=== PATIENT | female | born 1960 | race Caucasian/White ===

== ENCOUNTER → 2017-03-15 | Outpatient (CLI) | payer OTHER ==
--- NOTE | 2017-03-15 07:58 | DIAGNOSTIC IMAGING REPORT ---
SOFT TISS HEAD/NECK-THYROID CLINICAL HISTORY: 56 years-old Female presenting with MULTIPLE THYROID NODULE, DYSPHAGIA. TECHNIQUE: Real-time grayscale and color and spectral Doppler ultrasound imaging of the thyroid and base of the neck was performed. COMPARISON: None. FINDINGS: Right lobe: Normal echogenicity and echotexture. The right lobe of the thyroid measures 5.6 x 2.3 x 2.2 cm. Multiple cystic and spongiform nodules, one with a hyperechogenic focus with ringdown artifact consistent with colloid. Additionally, a fairly well-defined 1.4 x 1.2 x 1.4 cm isoechoic to hyperechoic nodule in the interpolar region noted. (Low suspicion pattern) Left lobe: Normal echogenicity and echotexture. The left lobe of the thyroid measures 5.4 x 2.1 x 1.8 cm. Multiple nodules listed below: 1) lower pole heterogeneously isoechoic nodule measuring 1.3 x 1.2 x 1.8 cm. This nodule is somewhat poorly defined but wider than tall. (Low suspicion pattern) 2) lower pole to mid pole heterogeneously hypoechoic nodule measuring 1.0 x 1.0 x 1.5 cm. This nodule is well-defined and wider than tall. (Intermediate suspicion pattern) 3) Upper pole hypoechoic nodule measuring 1.3 x 1.2 x 1.9 cm. This nodule is well-defined and wider than tall. (Intermediate suspicion pattern) Isthmus: The isthmus measures 8 mm in thickness. Heterogeneously hypoechoic nodule along the right aspect measuring 1.1 x 0.6 x 0.7 cm, which is well-defined and wider than tall. (Intermediate suspicion pattern) IMPRESSION: Multinodular thyroid. Based on [place] [employer] guidelines for cyst noted thyroid nodules, fine-needle aspiration of the 2 hypoechoic left thyroid lobe nodules and hypoechoic isthmic nodule could be considered. Electronically signed by: Get Hernandez M.D. 03/15/2017 7:56 AM Dictated Date/Time: 03/15/2017 7:49 AM
--- NOTE | 2017-03-15 08:17 | DIAGNOSTIC IMAGING REPORT ---
(BARIUM SWALLOW) ESOPHAGUS CLINICAL HISTORY: Dysphagia. COMPARISON STUDY: None. FLUOROSCOPY TIME: 1.5 minutes. FINDINGS: 23 fluoroscopic images were obtained. There was a persistent apparent filling defect within the left aspect of the hypopharynx which measures approximately 2 cm in size. This is probably artifactual although a mucosal lesion could appear similar. No esophageal mass or stricture was identified. A 13 mm barium tablet passed into the stomach. No hiatal hernia was identified. No gastroesophageal reflux was elicited. IMPRESSION: 1. Persistent apparent filling defect within the left aspect of the hypopharynx. This is likely artifactual although a mucosal lesion could appear similar. If not recently performed, correlation with direct visualization might be considered. 2. Otherwise, unremarkable barium swallow. No esophageal mass or stricture. 13 mm barium tablet passed into the stomach. Electronically signed by: Jere Samuels M.D. 03/15/2017 8:16 AM Dictated Date/Time: 03/15/2017 8:13 AM
== END | disposition home or self-care (01) ==
LOC: C.ULTR 07:06
DX: R13.10 Dysphagia, unspecified (principal); E04.2 Nontoxic multinodular goiter; R93.3 Abnormal findings on diagnostic imaging of other parts of digestive tract

== ENCOUNTER 2017-08-04 05:06 | Inpatient (IN) | payer OTHER ==
[2017-07-16 09:03] VITALS: BMI 31.0
[2017-08-04] VITALS (9 sets, daily range): BP systolic 118–156; BP diastolic 75–97; PULSE 72–80; TEMP 36.4–36.7; O2SAT 94–97; Ht 167.6 cm; Wt 88.2 kg
[~2017-08-04] VITALS: Ht 167.6 cm; Wt 88.2 kg
[~2017-08-04 05:06] MED LIST: ASPI-390 PO; ASPI81TA28 PO; FLUT0.15 NAE; HYDR25TA4 PO; MAGN400T6 PO; PANT40TA PO; POTA10CA28 PO; PRAV20TA PO; VITA1TAB4 PO
[2017-08-04] MEDS ORDERED: LACTATED RINGER'S 1000ML 1,000 ML IV SCH (06:00)
[2017-08-04] MEDS ORDERED: CLINDAMYCIN 600 MG/54 ML D5W IV SCH (06:00)
[2017-08-04 06:06] LABS: CALCIUM 9.8 mg/dl (8.5-10.1); CREATININE 0.64 mg/dl (0.60-1.20); POTASSIUM 3.6 mmol/L (3.5-5.1)
--- NOTE | 2017-08-04 06:17 | History and Physical ---
History & Physical Date Aug 04, 2017. Chief Complaint MULTINODULAR GOITER History of Present Illness The patient is a 56 year old female with complaints of DYSPHAGIA WITH THYROID ULTRASOUND SHOWING MNG WITH 3 INTERMEDIATE SUSPICION NODULES WITH 2 ON L AND 1 ON R. 2 ON L ARE 1.5 AND 1.9CM. MANY OTHER 1CM NODULES THROUGHOUT THE GLAND. PT DESIRES TOTAL THYROIDECTOMY FOR DIAGNOSTIC AND THERAPEUTIC INTERVENTION. Past Medical/Surgical History PMH: H/O HYPERTHYROIDISM IN THE PAST PSH: S/P EZEQUIEL, S/P HYSTERECTOMY, S/P SEPTOPLASTY, S/P BREAST LUMPECTOMY Additional History Hepatic Disease: No Endocrine Disorder: No Kidney Disease: No Hypertension: No Heart Disease: No Bleeding Tendencies: No Infectious Diseases: No Allergies Coded Allergies: Alcohol (Verified Allergy, Unknown, TINGLING OF HANDS AND FEET, HIVES, 05/12) Cefaclor (Verified Allergy, Unknown, HIVES, 08/04/17) Ciprofloxacin (Verified Allergy, Unknown, TINGLING OF HANDS OF FEET, HIVES , 08/04/17) Naproxen (Verified Allergy, Unknown, HIVES, 08/04/17) Sulfamethoxazole w/Trimethoprim (Verified Allergy, Unknown, tingling on hands and feet, hives, 08/04/17) Home Medications Scheduled Aspirin (Aspirin Ec), 81 MG PO QAM Hydrochlorothiazide (Hctz), 25 MG PO QAM Magnesium Oxide (Mag-Ox), 400 MG PO BID Pantoprazole (Protonix), 1 TAB PO QAM Potassium Chloride (Micro-K Ext Rel), 10 MEQ PO TID Pravastatin (Pravachol ), 80 MG PO HS Vitamin E (Vitamin E), 1 TAB PO QAM Scheduled PRN Arbkwxw-Cjfdcjiejzghr-Dtanfbrw (Excedrin Migraine), 1 TAB PO DAILY PRN for Migraine Fluticasone Propionate (Nasal) (Flonase Allergy Relief), 1 SPRAY ALDO UD PRN for PRN Physical Examination Skin: warm/dry, no rash Eyes: normal inspection, EOMI, sclerae normal ENT: + pertinent finding (MILDLY ENLARGED MNG) Head: normocephalic, atraumatic Neck: supple, no adenopathy, trachea midline Respiratory/Chest: lungs clear, normal breath sounds, no respiratory distress Cardiovascular: regular rate, rhythm, no edema, no murmur Neurologic/Psych: no motor/sensory deficits, alert, normal reflexes, oriented x 3 Diagnosis MULTINODULAR GOITER Plan of Treatment TOTAL THYROIDECTOMY
[2017-08-04] MEDS ORDERED: ATROPINE SULFATE 0.1 MG/ML 5ML SYR IV PRN (06:45)
[2017-08-04] MEDS ORDERED: EpHEDrine SULFATE INJ 50 MG/ML AMP IV PRN (06:45)
[2017-08-04] MEDS ORDERED: FENTANYL CITRATE INJ 50 MCG/1 ML 2 ML VIAL IV PRN (06:45)
[2017-08-04] MEDS ORDERED: ONDANSETRON INJ 2 MG/ML 2 ML VIAL IV PRN ×2 (06:45→09:15)
[2017-08-04] MEDS ORDERED: BACITRACIN OINT 15 GM TUBE ONE (06:50)
[2017-08-04] MEDS ORDERED: THROMBIN 5000 UNITS KIT ONE (06:50)
[2017-08-04] MEDS ORDERED: MIDAZOLAM HCL 1 MG/ML 2ML VIAL ONE (06:51)
[2017-08-04] MEDS ORDERED: LIDOCAINE HCL 2% 2 ML VIAL (20MG/ML) ONE (06:51)
[2017-08-04] MEDS ORDERED: PROPOFOL IV EMULSION 10 MG/ML 20 ML VIAL IV ONE ×2 (06:51→08:19)
[2017-08-04] MEDS ORDERED: SUCCINYLCHOLINE CHLORIDE 20 MG/ML 10 ML VIAL IV ONE (06:51)
[2017-08-04] MEDS ORDERED: FENTANYL CITRATE INJ 50 MCG/1 ML 2 ML VIAL ONE (06:51)
[2017-08-04] MEDS ORDERED: LIDOCAINE/EPINEPHRINE 1% 20 ML VIAL ONE (06:55)
[2017-08-04] MEDS ORDERED: HYDROmorphone INJ 2 MG/ML SYR/VIAL ONE (07:22)
[2017-08-04] MEDS ORDERED: ONDANSETRON INJ 2 MG/ML 2 ML VIAL ONE (08:20)
[2017-08-04] MEDS ORDERED: DEXAMETHASONE SOD INJ 4 MG/ML VIAL ONE (08:20)
[2017-08-04] MEDS ORDERED: ROCURONIUM BROMIDE 10 MG/ML 5 ML VIAL IV ONE (08:20)
--- NOTE | 2017-08-04 09:03 | [facility] Operative Report ---
Operative Report Operative Date Aug 04, 2017. Pre-Operative Diagnosis Multinodular Goiter Post-Operative Diagnosis Multinodular Goiter Procedure(s) Performed Total Thyroidectomy Surgeon Dr Vaca Store Operations Associate Surgeon(s) Cristiane Calderon PA-C Estimated Blood Loss 25ML Findings MILDLY ENLARGED MNG Specimens As Per Surgeon A. Right Thyroid Double Stitch Superior Single Stitch Isthmus B. Left Thyroid Double Stitch Superior Single Stitch Isthmus C. Left Thyroid Nodule I attest to the content of the Intraoperative Record and any orders documented therein. Any exceptions are noted below.
--- NOTE | 2017-08-04 09:08 | Discharge Instructions ---
Discharge Instructions Date of Service Aug 04, 2017. Admission Reason for Admission: Multiple Thyroid Nodules, Dysphagia Discharge Discharge Diagnosis / Problem: SAME Discharge Goals Goal(s): Therapeutic intervention Activity Recommendations Activity Limitations: as noted below LIGHT ACTIVITY FOR 2 WEEKS; NO DRIVING WHILE ON NORCO . Current Hospital Diet Patient's current hospital diet: Discharge Diet Recommended Diet: Regular Diet Procedures Procedures Performed: Total Thyroidectomy Pending Studies Studies pending at discharge: no Medical Emergencies . Who to Call and When: Medical Emergencies: If at any time you feel your situation is an emergency, please call 911 immediately. . Non-Emergent Contact Non-Emergency issues call your: Surgeon . . "Provider Documentation" section prepared by Ghulam Vaca. . VTE Core Measure Inpt VTE Proph given/why not?: SCD's
--- NOTE | 2017-08-04 09:29 | OPERATIVE REPORT ---
DATE OF OPERATION: 08/04/2017 PREOPERATIVE DIAGNOSES: 1. Dysphagia. 2. Multinodular goiter. POSTOPERATIVE DIAGNOSES: 1. Dysphagia. 2. Multinodular goiter. PROCEDURE: Total thyroidectomy. SURGEON: Ghulam Vaca MD AD CLERK: Cristiane Calderon PA-C. ESTIMATED BLOOD LOSS: 25 mL. FINDINGS: Mildly enlarged multinodular goiter. SPECIMENS: Right and left thyroid lobes sent separately for permanent pathological assessment as well as a left thyroid nodule sent separately for permanent pathological assessment. DRAINS: None. COMPLICATIONS: None. INDICATIONS FOR THE PROCEDURE: The patient is a 56-year-old female with a history of subclinical hyperthyroidism as well as dysphagia due to a mildly enlarged multinodular goiter. An ultrasound showed several nodules with 3 of them being intermediate in suspicion and options including ultrasound-guided fine needle aspiration biopsy versus total thyroidectomy were discussed with the patient. She has a strong family history of malignancy and desires total thyroidectomy for both diagnostic and therapeutic purposes. She presents for the above-mentioned procedure on an inpatient elective basis. DESCRIPTION OF PROCEDURE: After an informed consent had been obtained from the patient, the patient was wheeled to the operating room and placed on the operating table in the supine position. Monitors were placed. After induction of general endotracheal anesthesia with a size 7 nerve integrity monitor endotracheal tube, the patient's head and neck were gently extended and a marking pen was used to outline the planned 5-cm incision in a natural skin crease 2 fingerbreadths above the level of the clavicles. 3 mL of 1% lidocaine with 1:100,000 epinephrine was used to inject the skin and subcutaneous tissue overlying the planned incision site. The skin in the neck and chest were then prepped and draped in the usual sterile fashion. #15 scalpel was then used to make the incision through the skin, subcutaneous tissue, and platysma. Subplatysmal flaps were raised superiorly to the level of the thyroid notch and inferiorly to the level of clavicles. The median raphe of the strap muscles was divided using Bovie electrocautery. The strap muscles were retracted laterally and the right thyroid lobe was first addressed. The middle thyroid vein as well as inferior and superior thyroid vascular pedicles were divided adjacent to the thyroid capsule using Harmonic scalpel. Dissection was carried lateral to medial with care to identify and preserve the right recurrent laryngeal nerve as well as superior and inferior parathyroid candidates. The thyroid gland was then at the isthmus using a Harmonic scalpel. Orienting sutures were placed on the right thyroid lobectomy specimen, which was sent off for permanent pathological assessment. The left side was then addressed. For some reason, the nerve integrity monitor stopped working when we switched sides. Despite troubleshooting the system, the nerve monitor was not working and therefore it was turned off for the left side of the case. The left side was then removed in a similar fashion. There were similar intraoperative findings of a mildly enlarged multinodular gland. There was a small thyroid nodule that was seemed to be separate from the lateral aspect of the gland and this was removed separately and sent off as a separate permanent pathological specimen. Once again, the left recurrent laryngeal nerve as well as superior and inferior parathyroid candidates were identified and preserved. The wound was copiously irrigated and suctioned. Bipolar electrocautery was used to achieve adequate hemostasis. Hemostasis was confirmed with a Valsalva maneuver. Small pieces of Surgicel followed by topical spray thrombin were then placed into the bilateral tracheoesophageal grooves for added hemostatic effect. The strap muscles were then reapproximated in the midline using a simple running interlocking 3-0 Vicryl suture. The platysma was then closed with several deep 4-0 Monocryl sutures. The skin was then closed with a simple running subcuticular 5-0 Monocryl suture. Incision was cleansed and dried. Dermabond was applied to the incision. The nerve integrity monitor electrodes were removed from the patient's chest and then, antibiotic ointment was placed over the electrode insertion sites. This marked the end of the case. The patient tolerated the procedure well with no apparent complications. The patient was extubated and transferred to the recovery room in stable condition. Of note, Cristiane Calderon helped me with the entire case and then perform the skin closure starting with the platysmal closure followed by a subcuticular skin closure. I attest to the content of the Intraoperative Record and any orders documented therein. Any exception s are noted below.
--- NOTE | 2017-08-04 10:19 | Anesthesiology Progress Note ---
Anesthesia Post Op Note Date & Time Aug 04, 2017 at 10:19 Vital Signs Pain Intensity: 0 Vital Signs Past 12 Hours Date Time Temp Pulse Resp B/P (MAP) Pulse Ox O2 Delivery O2 Flow Rate FiO2 08/04/17 10:00 85 14 08/04/17 10:00 85 14 134/79 96 08/04/17 09:55 84 13 08/04/17 09:55 85 13 136/75 96 08/04/17 09:50 89 13 145/76 97 08/04/17 09:50 88 13 08/04/17 09:45 88 14 150/77 97 08/04/17 09:45 89 14 08/04/17 09:40 84 10 08/04/17 09:40 84 10 140/78 97 08/04/17 09:35 36.0 79 16 162/83 97 Oxymask 10 08/04/17 09:35 78 10 162/83 97 08/04/17 09:35 79 10 08/04/17 05:42 36.7 80 18 156/97 (116) 96 Room Air Notes Mental Status: alert / awake / arousable, participated in evaluation Pt Amnestic to Procedure: Yes Nausea / Vomiting: adequately controlled Pain: adequately controlled Airway Patency, RR, SpO2: stable & adequate BP & HR: stable & adequate Hydration State: stable & adequate Anesthetic Complications: no major complications apparent
[2017-08-04] MEDS: POTASSIUM CHLORIDE 10 MEQ TABCR PO SCH ×2 (13:18→21:12)
[2017-08-04] MEDS: HYDROCHLOROTHIAZIDE 25 MG TAB PO SCH (13:19)
[2017-08-04] MEDS: HYDROCODONE/ACETAMOPHEN 5/325MG TAB PO PRN ×2 (13:28→21:11)
--- NOTE | 2017-08-04 14:59 | ENT PROGRESS NOTE ---
DATE: 08/04/2017 DATE: 08/04/2017 SUBJECTIVE: The patient underwent total thyroidectomy today. She was seen in postoperative followup in her hospital room. She is without any numbness or paresthesias involving the lips, fingers, or toes. She denies any muscle spasms or cramps. Her pain is adequately controlled. She has no voice or swallowing complaints. She has a headache, but otherwise is not in any significant pain. The patient is afebrile. OBJECTIVE: VITAL SIGNS: Stable. She is mildly hypertensive with a blood pressure of 143/86. She is satting 97% on room air. On examination the patient's voice is normal. Her thyroidectomy incision is clean, dry and intact with Dermabond in place and no evidence of hematoma. ASSESSMENT AND PLAN: Postoperative day 0 status post total thyroidectomy for a multinodular goiter and dysphagia. The patient is doing well so far. Her first set of laboratory examinations will be done at 3:00 p.m. and every 6 hours thereafter. I would anticipate discharge home tomorrow if all goes well.
[2017-08-04] MEDS: LACTATED RINGER'S 1000ML 1,000 ML IV SCH ×2 (15:22→23:33)
[2017-08-04] MEDS ORDERED: NURSING VERBAL MED ORDER ONE (15:30)
[2017-08-04 15:37] LABS: ALBUMIN 3.6 gm/dl (3.4-5.0); CALCIUM 8.7 mg/dl (8.5-10.1); PHOSPHORUS 3.8 mg/dl (2.5-4.9)
[2017-08-04] MEDS ORDERED: PRAVASTATIN SOD 40 MG TAB PO SCH (21:00)
[2017-08-04] MEDS: MAGNESIUM OXIDE 400 MG TAB PO SCH (21:11)
[2017-08-04 21:55] LABS: ALBUMIN 3.7 gm/dl (3.4-5.0); PHOSPHORUS 3.3 mg/dl (2.5-4.9)
[2017-08-05 03:23] LABS: ALBUMIN 3.5 gm/dl (3.4-5.0); CALCIUM 8.8 mg/dl (8.5-10.1); PHOSPHORUS 3.7 mg/dl (2.5-4.9)
[2017-08-05 04:00] VITALS: BP 135/78; PULSE 79; TEMP 36.8; O2SAT 95
--- NOTE | 2017-08-05 05:04 | ENT PROGRESS NOTE ---
DATE: 08/05/2017 SUBJECTIVE: The patient is postoperative day #1 status post total thyroidectomy for multinodular goiter and dysphagia. The patient denies any perioral or digital numbness or paresthesias. She denies any hoarseness or dysphagia. OBJECTIVE: The patient is afebrile and her vital signs are stable. Voice is normal. Thyroidectomy incision is healing well with Dermabond in place. There is no evidence of hematoma or fluid collection. LABORATORY DATA: Examinations reveal normal calcium over 3 different time periods 6 hours apart. ASSESSMENT AND PLAN: Postoperative day #1 status post total thyroidectomy. The patient has done well and will be discharged this morning.
--- NOTE | 2017-08-05 05:10 | DISCHARGE SUMMARY ---
ADMISSION DIAGNOSES: Dysphagia and multinodular goiter. DISCHARGE DIAGNOSIS: Status post total thyroidectomy. HOSPITAL COURSE: The patient underwent total thyroidectomy on 08/04/2017 for multinodular goiter with associated dysphagia. She had no postoperative problems. Both her voice and swallowing were normal. Her calcium levels were also normal over 3 time period 6 hours apart. She was discharged to home in stable condition on Synthroid 137 mcg daily, [place] 5 mg/325 mg 1-2 tablets by mouth every 4 hours as needed for pain with 40 tablets given. She is to keep her incision dry for 1 week and keep ice on her neck as much as possible for 1 week. She is to call if she gets any perioral numbness or paresthesias and/or involuntary muscle spasms or cramps. She will be seen in my office on postoperative day #6.
[2017-08-05] MEDS ORDERED: LEVOTHYROXINE 137 MCG TAB PO SCH (06:00)
[2017-08-05] MEDS ORDERED: NURSING DECISION MEDICATION ORDER SCH (06:30)
[2017-08-05 07:36] VITALS: BP 148/80; PULSE 75; TEMP 36.9; O2SAT 94
[2017-08-05] MEDS ORDERED: FLUTICASONE PROPIONATE NA SPR 16 GM BTL NAE SCH (09:00)
[2017-08-05] MEDS ORDERED: PANTOprazole SOD 40 MG TAB PO SCH (09:00)
[2017-08-05] MEDS: HYDROCHLOROTHIAZIDE 25 MG TAB PO SCH (09:01)
[2017-08-05] MEDS: MAGNESIUM OXIDE 400 MG TAB PO SCH (09:01)
[2017-08-05] MEDS: POTASSIUM CHLORIDE 10 MEQ TABCR PO SCH (09:02)
[2017-08-05 09:22] VITALS: BP 148/80; PULSE 75; TEMP 36.9; O2SAT 94
[2017-08-05 09:52] LABS: ALBUMIN 3.7 gm/dl (3.4-5.0); CALCIUM 9.2 mg/dl (8.5-10.1); PHOSPHORUS 3.3 mg/dl (2.5-4.9)
== END 2017-08-05 09:44 | disposition home or self-care (01) | DRG 627 ==
LOC: C.ACU 05:06 → C.MSW 09:07 → ENRESERV 10:14
PROC: 0GTK0ZZ Resection of Thyroid Gland, Open Approach (ICD-10-PCS; principal; 2017-08-04 07:00)
DX: E05.20 Thyrotoxicosis with toxic multinodular goiter without thyrotoxic crisis or storm (principal); R13.10 Dysphagia, unspecified; I10 Essential (primary) hypertension; E78.5 Hyperlipidemia, unspecified; K21.9 Gastro-esophageal reflux disease without esophagitis; M19.90 Unspecified osteoarthritis, unspecified site; E66.9 Obesity, unspecified; Z68.31 Body mass index [BMI] 31.0-31.9, adult; Z87.891 Personal history of nicotine dependence; Z79.82 Long term (current) use of aspirin; Z79.899 Other long term (current) drug therapy; Z80.9 Family history of malignant neoplasm, unspecified

== ENCOUNTER → 2017-09-22 | Outpatient (CLI) | payer OTHER ==
[~2017-09-22] MED LIST changes: -ASPI-390 PO; -ASPI81TA28 PO; -VITA1TAB4 PO
== END | disposition home or self-care (01) ==
LOC: C.LAB 06:50
PROVIDERS: ATTEND Internal Medicine Endocrinology, Diabetes & Metabolism
DX: E04.2 Nontoxic multinodular goiter (principal); S82.409A Unspecified fracture of shaft of unspecified fibula, initial encounter for closed fracture; X58.XXXA Exposure to other specified factors, initial encounter